=== PATIENT | male | born 1985 | race Caucasian/White ===

== ENCOUNTER 2018-02-19 18:29 | Emergency (ER) | payer OTHER ==
[~2018-02-19] VITALS: Ht 177.8 cm; Wt 77.6 kg
--- NOTE | 2018-02-19 18:32 | ED.ADGEN ---
Past History Past Medical History: Bronchitis Adult General Chief Complaint Chief Complaint ".. I ve had this cold and cough now for over a week.. my dad had the same thing.. the got better on a Z pack... I sill coughing my self hoarse.. 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 Pt. denies any immunosuppression. Pt. is up-to-date with vaccinations. No recent overseas travel. No specific ill contacts other than his father. Patient normally follows at [facility]. Review of Systems Review of Systems Constitutional: Subjective history of fever and chills [] Eyes: Denies change in visual acuity, redness, or eye pain [] HENT: Denies nasal congestion or sore throat [] Respiratory: Hx. of non-productive cough and wheezing Cardiovascular: No additional information not addressed in HPI [] GI: Denies abdominal pain, nausea, vomiting, bloody stools or diarrhea [] : Denies dysuria or hematuria [] Musculoskeletal: Denies back pain or joint pain [] Integument: Denies rash or skin lesions [] Neurologic: Denies headache, focal weakness or sensory changes [] Endocrine: Denies polyuria or polydipsia [] All other systems were reviewed and found to be within normal limits, except as documented in this note. Family History Family History Father recently had similar presentation Current Medications Current Medications Current Medications Medications (Trade) Dose Ordered Sig/Todd Start Time Stop Time Status Last Admin Dose Admin Albuterol Sulfate (Ventolin Hfa) 60 puff STK-MED ONCE 02/19/18 18:49 02/19/18 18:50 DC Azithromycin (Zithromax) 500 mg 1X ONCE 02/19/18 18:45 02/19/18 18:50 DC 02/19/18 19:02 500 MG Prednisone (Prednisone) 50 mg 1X ONCE 02/19/18 18:45 02/19/18 18:50 DC 02/19/18 19:02 50 MG Allergies Allergies Allergies Coded Allergies Type Severity Reaction Last Updated Verified doxycycline Allergy Unknown 02/19/18 Yes Physical Exam Physical Exam Constitutional: Well developed, well nourished, mild distress, non-toxic appearance. [] HENT: Normocephalic, atraumatic, bilateral external ears normal, mild pharyngeal erythema, oropharynx moist, no oral exudates, nose mild rhinorrhea. Eyes: PERRLA, EOMI, conjunctiva normal, no discharge. [] Neck: Normal range of motion, no tenderness, supple, no stridor. [] Cardiovascular:Heart rate regular rhythm, no murmur [] Lungs & Thorax: Bilateral breath sounds equal on a apex with scattered wheezing on auscultation [] Abdomen: Bowel sounds normal, soft, no tenderness, no masses, no pulsatile masses. [] Skin: Warm, dry, no erythema, no rash. [] Back: No tenderness, no CVA tenderness. [] Extremities: No tenderness, no cyanosis, no clubbing, ROM intact, no edema. [] Neurologic: Alert and oriented X 3, normal motor function, normal sensory function, no focal deficits noted. [] Psychologic: Affect normal, judgement normal, mood normal. [] Current Patient Data Vital Signs Vital Signs Date Time Temp Pulse Resp B/P (MAP) Pulse Ox O2 Delivery O2 Flow Rate FiO2 02/19/18 18:48 98.4 61 20 97 Room Air EKG EKG [] Radiology/Procedures Radiology/Procedures [] Course & Med Decision Making Course & Med Decision Making Pertinent Labs and Imaging studies reviewed. (See chart for details) Gargle with Listerine 4 x day. Take tylenol and Ibuprofen for discomfort. Take Pednisone 50 x 5 day. Take Zithromax 250 daily. Take Benadryl 50 mg up 4 x day for drainage. Use MDI two puffs four time s day. Follow up a must if no improvement. Return if any concerns. [] Final Impression Final Impression 1. Upper Respiratory Infection 2. Bronchitis 3. Reactive airway[] Dragon Disclaimer Dragon Disclaimer This electronic medical record was generated, in whole or in part, using a voice recognition dictation system. JUSTINA VILLANUEVA MD Feb 19, 2018 18:32
[2018-02-19] MEDS ORDERED: AZITHROMYCIN 250 MG TABLET. PO ONE (18:45)
[2018-02-19] MEDS ORDERED: predniSONE 10 MG TABLET PO ONE (18:45)
[2018-02-19] MEDS ORDERED: ALBUTEROL SULFATE 8GM INHALER. INH ONE (18:45)
[2018-02-19 18:48] VITALS: BP 114/62
[2018-02-19] MEDS ORDERED: PRED50TA PO (18:49)
[2018-02-19] MEDS ORDERED: ALBUTEROL SULFATE 8GM INHALER. ONE (18:49)
[2018-02-19] MEDS ORDERED: DIPH25CA58 PO (18:49)
[2018-02-19] MEDS ORDERED: IBUP400T18 PO (18:49)
[2018-02-19] MEDS ORDERED: AZIT250T PO (18:49)
== END 2018-02-19 19:03 | disposition home or self-care (01) ==
LOC: ER 18:29
DX: J06.9 Acute upper respiratory infection, unspecified (principal); J45.909 Unspecified asthma, uncomplicated; Z88.1 Allergy status to other antibiotic agents
CPT/HCPCS: 94640; 99283; J0456; J7512